=== PATIENT | male | born 2000 | race African-American/Black ===

== ENCOUNTER 2022-09-11 07:10 | Emergency (ER) | payer OTHER ==
[2022-09-11] MEDS ORDERED: Ibuprofen 200 MG TAB ONE (08:03)
== END 2022-09-11 08:49 | disposition home or self-care (01) ==
LOC: CSHERS 07:10
DX: M79.641 Pain in right hand (principal)

== ENCOUNTER 2024-06-16 17:17 | Emergency (ER) | payer OTHER ==
[2024-06-16 17:57] LABS: Bilirubin Neg (Negative); Blood, Urine Negative (Negative); Clarity Clear (Clear); Glucose, Urine (Dipstick) Normal (Negative); Ketone, Urine Negative (Negative); Leukocyte Negative (Negative); Nitrite Negative (Negative); Protein, Urine (Dipstick) Negative (Neg-Trace); Specific Gravity, Urine 1.005 (1.005-1.030)
[2024-06-16 18:08] LABS: Bacteria/HPF Rare-Few HPF (None Seen); CAUTI Indications for Culture Dysuria,urgency,freq; RBC/HPF 0-3 HPF (0-3); Squamous Epithelial 0-3 HPF (0-3)
[2024-06-16 18:12] LABS: Mucous/LPF 2+ LPF (<2+)
[2024-06-16 18:14] LABS: Urine Culture Reflex No No
[2024-06-17 05:45] LABS: Chlam.trachomatis by PCR,Urine Not Detected (NotDetected); GC N.gonorrhoeae PCR,UrineVOID Not Detected (NotDetected)
== END 2024-06-16 19:18 | disposition home or self-care (01) ==
LOC: CSHERS 17:17
DX: N48.1 Balanitis (principal)
CPT/HCPCS: 81001; 87491; 87591; 99284